=== PATIENT | male | born 1955 | race Caucasian/White ===

== ENCOUNTER 2024-03-07 13:45 | Emergency (ER) | payer BC, OTHER ==
[~2024-03-07] VITALS: Ht 157.5 cm; Wt 77.1 kg
[2024-03-07 13:59] VITALS: BP_SYST 119; PULSE 93; RESP 18; TEMP 97.5; O2SAT 96
[2024-03-07] MEDS: DIPHTH,PERTUSS(ACELL),TET VAC 0.5 ML VIAL (Tdap) I.M. ONE (14:35)
[2024-03-07] MEDS: SILVER SULFADIAZINE 1%, 25 GM TOPICAL CREAM (SSD) TP ONE (14:38)
[2024-03-07 14:45] VITALS: BP_SYST 119; PULSE 96; RESP 20; TEMP 98; O2SAT 97
== END 2024-03-07 14:44 | disposition home or self-care (01) ==
LOC: SED 13:45
DX: T21.22XA Burn of second degree of abdominal wall, initial encounter (principal); Z23 Encounter for immunization; T31.0 Burns involving less than 10% of body surface; X12.XXXA Contact with other hot fluids, initial encounter; Y93.89 Activity, other specified; Y92.89 Other specified places as the place of occurrence of the external cause; Y99.8 Other external cause status
CPT/HCPCS: 90715; 99283